=== PATIENT | female | born 1945 | race Caucasian/White ===

== ENCOUNTER 2018-12-09 09:02 | Emergency (ER) | payer MEDICARE, BC ==
[2018-12-09 09:13] VITALS: TEMP 97.6
[2018-12-09] MEDS ORDERED: SODIUM CHLORIDE 0.9% 500 ML 500 ML IV STA (09:26)
--- NOTE | 2018-12-09 09:31 | ED ---
General Adult HPI - General Chief complaint: Neuro Symptoms/Deficit Stated complaint: Numbness on R Side Time Seen by Provider: 12/09/18 09:10 Source: patient, RN notes reviewed Mode of arrival: ambulatory Limitations: no limitations - History of Present Illness Initial comments: This a 73-year-old female presents emergency department stating that she had some tingling in her right arm. Patient states this occurs when she plays video games occasionally but usually resolves. Patient states today it didn't resolve and it went up her whole arm into her shoulder and then down her side and into her leg. Patient states the tingling sensation lasted about an hour and a half and then completely resolved. Patient also states she had a mild headache in the middle of this. Patient states she's never lost feeling she just had a tingling sensation of the whole right side of her body. Patient denies any loss of strength. Patient denies any slurred speech. Patient denies any visual disturbance. Patient has no symptoms currently. Patient denies chest pain difficulty breathing or shortness of breath per patient denies any recent fever chills or cough. - Related Data Home Medications Medication Instructions Recorded Confirmed Ascorbic Acid [Vitamin C] 1,000 mg PO DAILY 12/09/18 12/09/18 Calcium Carbonate [Calcium] 600 mg PO DAILY 12/09/18 12/09/18 Levothyroxine Sodium [Synthroid] 25 mcg PO SUTUTHSA 12/09/18 12/09/18 Levothyroxine Sodium [Synthroid] 50 mcg PO MOWEFR 12/09/18 12/09/18 Multivitamins, Thera [Multivitamin 1 tab PO DAILY 12/09/18 12/09/18 (formulary)] [place]-3 Fatty Acids [[place]-3] 1,000 mg PO DAILY 12/09/18 12/09/18 Omeprazole 40 mg PO DAILY 12/09/18 12/09/18 Ubidecarenone [Co Q-10] 200 mg PO DAILY 12/09/18 12/09/18 Vitamin B Complex 1 cap PO DAILY 12/09/18 12/09/18 Allergies Allergy/AdvReac Type Severity Reaction Status Date / Time Iodinated Contrast- Oral and Allergy Unknown Verified 12/09/18 09:43 IV Dye Sulfa (Sulfonamide Allergy Unknown Verified 12/09/18 09:43 Antibiotics) Review of Systems ROS Statement: Those systems with pertinent positive or pertinent negative responses have been documented in the HPI. ROS Other: All systems not noted in ROS Statement are negative. Past Medical History Past Medical History: GERD/Reflux, Thyroid Disorder History of Any Multi-Drug Resistant Organisms: None Reported Past Surgical History: Hernia Repair, Hysterectomy Past Psychological History: No Psychological Hx Reported Smoking Status: Former smoker Past Alcohol Use History: None Reported Past Drug Use History: None Reported General Exam - General Exam Comments Initial Comments: GENERAL: Patient is well-developed and well-nourished. Patient is nontoxic and well- hydrated and is in mild distress. ENT: Neck is soft and supple. No significant lymphadenopathy is noted. Oropharynx is clear. Moist mucous membranes. Neck has full range of motion without eliciting any pain. EYES: The sclera were anicteric and conjunctiva were pink and moist. Extraocular movements were intact and pupils were equal round and reactive to light. Eyelids were unremarkable. PULMONARY: Unlabored respirations. Good breath sounds bilaterally. No audible rales rhonchi or wheezing was noted. CARDIOVASCULAR: There is a regular rate and rhythm without any murmurs gallops or rubs. ABDOMEN: Soft and nontender with normal bowel sounds. No palpable organomegaly was noted. There is no palpable pulsatile mass. SKIN: Skin is clear with no lesions or rashes and otherwise unremarkable. NEUROLOGIC: Patient is alert and oriented x3. Cranial nerves II through XII are grossly intact. Motor and sensory are also intact. Normal speech, volume and content. Symmetrical smile. MUSCULOSKELETAL: Normal extremities with adequate strength and full range of motion. LYMPHATICS: No significant lymphadenopathy is noted PSYCHIATRIC: Normal psychiatric evaluation. Limitations: no limitations Course Vital Signs 12/09/18 12/09/18 09:09 10:00 Temperature 97.6 F Pulse Rate 81 71 Respiratory 16 21 Rate Blood Pressure 180/75 143/73 O2 Sat by Pulse 98 94 L Oximetry Medical Decision Making - Medical Decision Making EKG shows normal sinus rhythm at 76 bpm NV interval 214 QRS is 66 QT interval 366 QTC is 411. EKG shows no ST segment elevation or depression. CT of the brain showed no acute abnormality. Chest x-ray showed no acute abnormality. Patient remains asymptomatic in the emergency department. I offered admission to the patient she did not want to be admitted she stated she wanted to be followed up as an outpatient. - Lab Data Result diagrams: 12/09/18 09:30 06/08/19 09:30 Lab Results 12/09/18 12/09/18 12/09/18 Range/Units 09:30 09:30 09:30 WBC 6.7 (3.8-10.6) k/uL RBC 4.74 (3.80-5.40) m/uL Hgb 14.2 (11.4-16.0) gm/dL Hct 43.2 (34.0-46.0) % MCV 91.1 (80.0-100.0) fL MCH 29.9 (25.0-35.0) pg MCHC 32.8 (31.0-37.0) g/dL RDW 13.0 (11.5-15.5) % Plt Count 342 (150-450) k/uL Neutrophils % 56 % Lymphocytes % 27 % Monocytes % 7 % Eosinophils % 6 % Basophils % 1 % Neutrophils # 3.8 (1.3-7.7) k/uL Lymphocytes # 1.8 (1.0-4.8) k/uL Monocytes # 0.5 (0-1.0) k/uL Eosinophils # 0.4 (0-0.7) k/uL Basophils # 0.0 (0-0.2) k/uL PT 10.5 (9.0-12.0) sec INR 1.0 (<1.2) APTT 23.7 (22.0-30.0) sec Sodium 140 (137-145) mmol/L Potassium 5.1 (3.5-5.1) mmol/L Chloride 102 (98-107) mmol/L Carbon Dioxide 30 (22-30) mmol/L Anion Gap 8 mmol/L BUN 29 H (7-17) mg/dL Creatinine 0.89 (0.52-1.04) mg/dL Est GFR (CKD-EPI)AfAm 74 (>60 ml/min/1.73 sqM) Est GFR (CKD-EPI)NonAf 65 (>60 ml/min/1.73 sqM) Glucose 81 (74-99) mg/dL Calcium 9.9 (8.4-10.2) mg/dL Total Bilirubin 0.5 (0.2-1.3) mg/dL AST 28 (14-36) U/L ALT 27 (9-52) U/L Alkaline Phosphatase 104 (38-126) U/L Troponin I (0.000-0.034) ng/mL Total Protein 7.6 (6.3-8.2) g/dL Albumin 4.5 (3.5-5.0) g/dL 12/09/18 Range/Units 09:30 WBC (3.8-10.6) k/uL RBC (3.80-5.40) m/uL Hgb (11.4-16.0) gm/dL Hct (34.0-46.0) % MCV (80.0-100.0) fL MCH (25.0-35.0) pg MCHC (31.0-37.0) g/dL RDW (11.5-15.5) % Plt Count (150-450) k/uL Neutrophils % % Lymphocytes % % Monocytes % % Eosinophils % % Basophils % % Neutrophils # (1.3-7.7) k/uL Lymphocytes # (1.0-4.8) k/uL Monocytes # (0-1.0) k/uL Eosinophils # (0-0.7) k/uL Basophils # (0-0.2) k/uL PT (9.0-12.0) sec INR (<1.2) APTT (22.0-30.0) sec Sodium (137-145) mmol/L Potassium (3.5-5.1) mmol/L Chloride (98-107) mmol/L Carbon Dioxide (22-30) mmol/L Anion Gap mmol/L BUN (7-17) mg/dL Creatinine (0.52-1.04) mg/dL Est GFR (CKD-EPI)AfAm (>60 ml/min/1.73 sqM) Est GFR (CKD-EPI)NonAf (>60 ml/min/1.73 sqM) Glucose (74-99) mg/dL Calcium (8.4-10.2) mg/dL Total Bilirubin (0.2-1.3) mg/dL AST (14-36) U/L ALT (9-52) U/L Alkaline Phosphatase (38-126) U/L Troponin I <0.012 (0.000-0.034) ng/mL Total Protein (6.3-8.2) g/dL Albumin (3.5-5.0) g/dL Disposition Clinical Impression: Paresthesias Disposition: HOME SELF-CARE Condition: Good Instructions (If sedation given, give patient instructions): Paresthesia (ED), Stroke (DC) Additional Instructions: Patient should take aspirin every day and follow-up with her primary or neurology. Is patient prescribed a controlled substance at d/c from ED?: No Referrals: Jaspal Rosas DO [Primary Care Provider] - 1-2 days Time of Disposition: 11:18
[2018-12-09 09:42] LABS: Basophils % (A) 1 %; Eosinophils # (A) 0.4 k/uL (0-0.7); Eosinophils % (A) 6 %; HCT 43.2 % (34.0-46.0); HGB 14.2 gm/dL (11.4-16.0); Lymphocytes # (A) 1.8 k/uL (1.0-4.8); Lymphocytes % (A) 27 %; MCH 29.9 pg (25.0-35.0); MCHC 32.8 g/dL (31.0-37.0); MCV 91.1 fL (80.0-100.0); Monocytes # (A) 0.5 k/uL (0-1.0); Monocytes % (A) 7 %; Neutrophils # (A) 3.8 k/uL (1.3-7.7); Neutrophils % (A) 56 %; Platelet Count 342 k/uL (150-450); RBC 4.74 m/uL (3.80-5.40); WBC 6.7 k/uL (3.8-10.6)
[2018-12-09 09:53] LABS: Partial Thromboplastin Time 23.7 sec (22.0-30.0); Prothrombin Time 10.5 sec (9.0-12.0)
[2018-12-09 09:55] LABS: Albumin 4.5 g/dL (3.5-5.0); Calcium 9.9 mg/dL (8.4-10.2); Potassium 5.1 mmol/L (3.5-5.1); Total Bilirubin 0.5 mg/dL (0.2-1.3); Total Protein 7.6 g/dL (6.3-8.2)
--- NOTE | 2018-12-09 09:58 | CT ---
EXAMINATION TYPE: CT brain wo con DATE OF EXAM: 12/09/2018 COMPARISON: NONE HISTORY: Neuro deficits, numbness on right side CT DLP: 1071.4 mGycm Automated exposure control for dose reduction was used. FINDINGS: Structures are midline. There is no evidence of hydrocephalus. There is diffuse periventricular white matter lucency which may relate to chronic white matter ischemic change. There is no acute focal les ion, mass effect or midline shift identified. I do not see evidence of intracranial blood. There is an air-fluid level in the right maxillary sinus. There is some mucosal thickening in the ant erior right-sided ethmoidal air cells. The mastoids are clear. The bony calvarium is intact. IMPRESSION: 1. NO ACUTE INTRACRANIAL ABNORMALITY. 2. ACUTE AND CHRONIC MAXILLARY AND RIGHT ANTERIOR ETHMOIDAL SINUS MUCOSAL DISEASE.
--- NOTE | 2018-12-09 10:00 | XR ---
EXAMINATION TYPE: XR chest 2V DATE OF EXAM: 12/09/2018 HISTORY: altered mental status. REFERENCE: NONE. FINDINGS: Lung volumes are prominent. Heart size upper limits of normal. There are increased intersti tial markings throughout the lungs. Pleural spaces appear clear. IMPRESSION: COPD AND EVIDENCE OF CHRONIC INTERSTITIAL DISEASE.
[2018-12-09 11:40] VITALS: BP 160/83; PULSE 69; RESP 16
== END 2018-12-09 11:34 | disposition home or self-care (01) ==
LOC: EC 09:02
DX: R20.2 Paresthesia of skin (principal); R51 Headache; K21.9 Gastro-esophageal reflux disease without esophagitis; E07.9 Disorder of thyroid, unspecified; Z87.891 Personal history of nicotine dependence; Z88.2 Allergy status to sulfonamides; Z91.041 Radiographic dye allergy status; Z79.890 Hormone replacement therapy; Z79.899 Other long term (current) drug therapy
CPT/HCPCS: 36415; 70450; 71046; 80053; 84484; 85025; 85610; 85730; 93005; 99284

== ENCOUNTER 2022-12-16 02:07 | Observation (INO) | payer MEDICARE, BC ==
[2022-12-16 03:53] LABS: Basophils # (A) 0.1 k/uL (0-0.2); Basophils % (A) 1 %; Eosinophils # (A) 1.1 k/uL (0-0.7); Eosinophils % (A) 10 %; HCT 39.5 % (34.0-46.0); HGB 13.1 gm/dL (11.4-16.0); Lymphocytes # (A) 1.5 k/uL (1.0-4.8); Lymphocytes % (A) 15 %; MCH 30.7 pg (25.0-35.0); MCHC 33.1 g/dL (31.0-37.0); MCV 92.7 fL (80.0-100.0); Mean Platelet Volume 8.5; Monocytes % (A) 10 %; Neutrophils # (A) 6.3 k/uL (1.3-7.7); Neutrophils % (A) 62 %; Platelet Count 389 k/uL (150-450); RBC 4.26 m/uL (3.80-5.40); RDW 12.4 % (11.5-15.5); WBC 10.2 k/uL (3.8-10.6)
[2022-12-16 03:58] LABS: ALT 20 U/L (4-34); AST 26 U/L (14-36); African American GFR (CKD) 88 (>60 ml/min/1.73 sqM); Albumin 3.7 g/dL (3.5-5.0); Alkaline Phosphatase 147 U/L (38-126); Anion Gap 6 mmol/L; Blood Urea Nitrogen 21 mg/dL (7-17); Calcium 8.8 mg/dL (8.4-10.2); Carbon Dioxide 26 mmol/L (22-30); Chloride 103 mmol/L (98-107); Glucose 114 mg/dL (74-99); Lipase 56 U/L (23-300); Magnesium 1.9 mg/dL (1.6-2.3); Non-African American GFR(CKD) 76 (>60 ml/min/1.73 sqM); Potassium 4.5 mmol/L (3.5-5.1); Sodium 135 mmol/L (137-145); Total Bilirubin 0.5 mg/dL (0.2-1.3); Total Protein 6.7 g/dL (6.3-8.2)
[2022-12-16 04:42] LABS: Prothrombin Time 10.5 sec (9.0-12.0)
--- NOTE | 2022-12-16 05:05 | ED ---
General Adult HPI - General Source: patient, EMS Mode of arrival: EMS Limitations: no limitations <Nicanor Nunes - Last Filed: 12/16/22 07:06> <Zane Olvera - Last Filed: 12/16/22 10:02> - General Chief complaint: Shortness of Breath Stated complaint: SOB, Fever Time Seen by Provider: 12/16/22 02:19 - History of Present Illness Initial comments: This is a 77-year-old female with no past medical history presents emergency department for acute shortness of breath that began at 10 PM. The patient stated that she had experienced increasing shortness of breath at 10 PM that she had not experience before. The patient is described to be extremely active and was working throughout the yard today. The patient stated that she felt that her heart was racing as well and stated that when she arrived in the emergency department after EMS took her, she did have improvement of her symptoms. The patient had denied any hypertension as well as any anxiety or panic attacks. The patient did however state she does have a history of white coat syndrome. The patient denied any other acute pain or complaints at this time. The patient denied any fevers and chills but did state that she has been feeling intermitt ently weak over the last 1 week. (Nicanor Nunes) - Related Data Home Medications Medication Instructions Recorded Confirmed Ascorbic Acid [Vitamin C] 1,000 mg PO DAILY 12/09/18 12/09/18 Calcium Carbonate [Calcium] 600 mg PO DAILY 12/09/18 12/09/18 Levothyroxine Sodium [Synthroid] 25 mcg PO SUTUTHSA 12/09/18 12/09/18 Levothyroxine Sodium [Synthroid] 50 mcg PO MOWEFR 12/09/18 12/09/18 Multivitamins, Thera [Multivitamin 1 tab PO DAILY 12/09/18 12/09/18 (formulary)] [place]-3 Fatty Acids [[place]-3] 1,000 mg PO DAILY 12/09/18 12/09/18 Omeprazole 40 mg PO DAILY 12/09/18 12/09/18 Ubidecarenone [Co Q-10] 200 mg PO DAILY 12/09/18 12/09/18 Vitamin B Complex 1 cap PO DAILY 12/09/18 12/09/18 Allergies Allergy/AdvReac Type Severity Reaction Status Date / Time Iodinated Contrast Media Allergy Unknown Verified 12/09/18 09:43 [Iodinated Contrast- Oral and IV Dye] Sulfa (Sulfonamide Allergy Unknown Verified 12/09/18 09:43 Antibiotics) Review of Systems ROS Other: All systems not noted in ROS Statement are negative. <Nicanor Nunes - Last Filed: 12/16/22 07:06> ROS Other: All systems not noted in ROS Statement are negative. <Zane Olvera - Last Filed: 12/16/22 10:02> ROS Statement: Those systems with pertinent positive or pertinent negative responses have been documented in the HPI. Past Medical History Past Medical History: GERD/Reflux, Thyroid Disorder History of Any Multi-Drug Resistant Organisms: None Reported Past Surgical History: Hernia Repair, Hysterectomy Past Psychological History: No Psychological Hx Reported Past Alcohol Use History: None Reported Past Drug Use History: None Reported <Nicanor Nunes - Last Filed: 12/16/22 07:06> General Exam Limitations: no limitations General appearance: alert, in no apparent distress Head exam: Present: atraumatic, normocephalic, normal inspection Eye exam: Present: normal appearance, PERRL Pupils: Present: normal accommodation ENT exam: Present: normal exam, normal oropharynx, mucous membranes moist Neck exam: Present: normal inspection, full ROM Respiratory exam: Present: normal lung sounds bilaterally Cardiovascular Exam: Present: regular rate, normal rhythm, normal heart sounds GI/Abdominal exam: Present: soft, normal bowel sounds Extremities exam: Present: normal inspection, full ROM Back exam: Present: normal inspection, full ROM Neurological exam: Present: alert, oriented X3, CN II-XII intact Psychiatric exam: Present: normal affect, normal mood Skin exam: Present: warm, dry <Nicanor Nunes - Last Filed: 12/16/22 07:06> Course Vital Signs 12/16/22 12/16/22 12/16/22 02:09 04:04 05:00 Temperature 98.0 F Pulse Rate 100 93 90 Respiratory 20 20 25 H Rate Blood Pressure 182/89 182/89 178/80 O2 Sat by Pulse 92 L 94 L Oximetry 12/16/22 12/16/22 06:00 07:00 Temperature Pulse Rate 91 93 Respiratory 16 Rate Blood Pressure 178/80 174/81 O2 Sat by Pulse 97 94 L Oximetry EKG Findings - EKG Comments: EKG Findings:: An EKG was obtained was interpreted by myself showing a rate of 93, NH interval 125, QRS duration of 76 and QTC of 380. This EKG showed a normal sinus rhythm with no ST segment elevation or depression noted. <Nicanor Nunes - Last Filed: 12/16/22 07:06> Medical Decision Making - Lab Data Result diagrams: 12/16/22 02:20 12/16/22 02:20 <Nicanor Nunes - Last Filed: 12/16/22 07:06> - Lab Data Result diagrams: 12/16/22 02:20 12/16/22 02:20 <Zane Olvera - Last Filed: 12/16/22 10:02> - Medical Decision Making Was pt. sent in by a medical professional or institution (BRENDA Hernandes, ELECTRICAL AND INSTRUMENTATION MECHANIC, urgent care, hospital, or correction...) When possible be specific @ -No Did you speak to anyone other than the patient for history (EMS, parent, family, police, friend...)? What history was obtained from this source @ -No Did you review nursing and triage notes (agree or disagree)? Why? @ -I reviewed and agree with nursing and triage notes Were old charts reviewed (outside hosp., previous admission, EMS record, old EKG, old radiological studies, urgent care reports/EKG's, correction records)? Report findings @ -No old charts were reviewed Differential Diagnosis (chest pain, altered mental status, abdominal pain women, abdominal pain men, vaginal bleeding, weakness, fever, dyspnea, syncope, headache, dizziness, GI bleed, back pain, seizure, CVA, palpatations, mental health)? @ -Pneumonia, pneumothorax, ACS EKG interpreted by me (3pts min.). @ -As above X-rays interpreted by me (1pt min.). @ -Chest x-ray was obtained and was interpreted by myself showing diffuse prominence of the pulmonary interstitium which could reflect atypical pneumonia. Underlying fibrosis is difficult to exclude. There was no sizable pleural effusion present. CT interpreted by me (1pt min.). @ -None done U/S interpreted by me (1pt. min.). @ -None done What testing was considered but not performed or refused? (CT, X-rays, U/S, labs)? Why? @ -None What meds were considered but not given or refused? Why? @ -None Did you discuss the management of the patient with other professionals (professionals i.e. , PA, ELECTRICAL AND INSTRUMENTATION MECHANIC, lab, RT, psych nurse, social media analyst, stull hewer, teacher, digital controls technical officer, disease case manager)? Give summary @ -No Was smoking cessation discussed for >3mins.? @ -No Was critical care preformed (if so, how long)? @ -No Were there social determinants of health that impacted care today? How? (Homelessness, low income, unemployed, alcoholism, drug addiction, transportation, low edu. Level, literacy, decrease access to med. care, assisted, rehab)? @ -No Was there de-escalation of care discussed even if they declined (Discuss DNR or withdrawal of care, Hospice)? DNR status @ -No What co-morbidities impacted this encounter? (DM, HTN, Smoking, COPD, CAD, Cancer, CVA, ARF, Chemo, Hep., AIDS, mental health diagnosis, sleep apnea, morbid obesity)? @ -None Was patient admitted / discharged? Hospital course, mention meds given and route, prescriptions, significant lab abnormalities, going to OR and other pertinent info. @ -The patient was seen and evaluated emergency department. Physical exam, the patient was resting in bed without any acute distress. Vital signs admission were stable. Due to the nature the patient's complaints, laboratory workup and chest x-ray as well as an EKG were obtained. All laboratory workup was within normal limits. Chest x-ray showed possible atypical pneumonia versus fibrosis. Due to some of these findings in the setting of sudden shortness of breath, swabs for COVID-19, influenza and RSV were obtained. The patient will be signed out pending the results of the swabs. If the swabs are negative, the patient could be discharged home to follow-up with pulmonology. The patient was signed out to Dr. Olvera pending these swabs. Undiagnosed new problem with uncertain prognosis? @ -No Drug Therapy requiring intensive monitoring for toxicity (Heparin, Nitro, Insulin, Cardizem)? @ -No Were any procedures done? @ -No Diagnosis/symptom? @ -Shortness of breath, NOS, atypical pneumonia versus fibrosis Acute, or Chronic, or Acute on Chronic? @ -Acute on chronic Uncomplicated (without systemic symptoms) or Complicated (systemic symptoms)? @ -Complicated Side effects of treatment? @ -No Exacerbation, Progression, or Severe Exacerbation? @ -No Poses a threat to life or bodily function? How? (Chest pain, [place], [place], pneumonia, PE, COPD, DKA, ARF, appy, cholecystitis, CVA, Diverticulitis, Homicidal, Suicidal, threat to staff... and all critical care pts) @ -No (Nicanor Nunes) Patient is a 77-year-old female prior tobacco user who presents emergency Department complaining of worsening shortness of breath overnight. Has noticed some worsening exertional dyspnea for the last few weeks to months. But sudden onset worsening overnight. Patient is normally very active, the dyspnea was sudden in onset. Presented last night for evaluation. He was evaluated initially by prior physician, Dr. Nunes, and viral swabs are pending as well as reevaluation. I agree with his previous assessment and workup. This included cardiac labs and pulmonary labs with a normal d-dimer, nondetectable troponin, as well as a normal BMP for her age. Vital signs are negative. Remainder of the labs are unremarkable. Patient's EKG showed no evidence of acute ischemia. Chest x-ray as interpreted by myself revealed what appears to be only fibrosis which does appear worsens. Radiology does interpreted as possibly showing atypical pneumonia but when compared to prior chest x-rays, she does have a history of these findings, however they seem to have progressed. I discussed with the patient her workup. On ambulatory pulse ox, she does drop into the 80%'s for pulse ox. At rest she is typically 92-95%. I discussed with her that I do believe this is likely related to pulmonary fibrosis but cannot rule out other etiology such as pulmonary hypertension. I have lower suspicion for infection at this time. I would like to admit her to the hospital and she was in agreement this plan. Pulmonology will evaluate her. I spoke with the admitting physician, Dr. Bass who accepted the admission. Echo was ordered by myself. Dr. Bass requested a CT high-resolution scan without contrast of the chest. This was completed and revealed pulmonary fibrosis. Patient admitted in stable condition. Diagnosis/symptom? @ -Dyspnea, likely secondary to pulmonary fibrosis Acute, or Chronic, or Acute on Chronic? @ -Acute on chronic Uncomplicated (without systemic symptoms) or Complicated (systemic symptoms)? @ -Complicated Side effects of treatment? @ -none Exacerbation, Progression, or Severe Exacerbation] @ -no Poses a threat to life or bodily function? @ -Yes (Zane Olvera) - Lab Data Lab Results 12/16/22 12/16/22 12/16/22 Range/Units 02:20 02:20 02:20 WBC 10.2 (3.8-10.6) k/uL RBC 4.26 (3.80-5.40) m/uL Hgb 13.1 (11.4-16.0) gm/dL Hct 39.5 (34.0-46.0) % MCV 92.7 (80.0-100.0) fL MCH 30.7 (25.0-35.0) pg MCHC 33.1 (31.0-37.0) g/dL RDW 12.4 (11.5-15.5) % Plt Count 389 (150-450) k/uL MPV 8.5 Neutrophils % 62 % Lymphocytes % 15 % Monocytes % 10 % Eosinophils % 10 % Basophils % 1 % Neutrophils # 6.3 (1.3-7.7) k/uL Lymphocytes # 1.5 (1.0-4.8) k/uL Monocytes # 1.0 (0-1.0) k/uL Eosinophils # 1.1 H (0-0.7) k/uL Basophils # 0.1 (0-0.2) k/uL PT 10.5 (9.0-12.0) sec INR 1.0 (<1.2) APTT 25.0 (22.0-30.0) sec D-Dimer 0.46 (<0.60) mg/L FEU Sodium 135 L (137-145) mmol/L Potassium 4.5 (3.5-5.1) mmol/L Chloride 103 (98-107) mmol/L Carbon Dioxide 26 (22-30) mmol/L Anion Gap 6 mmol/L BUN 21 H (7-17) mg/dL Creatinine 0.76 (0.52-1.04) mg/dL Est GFR (CKD-EPI)AfAm 88 (>60 ml/min/1.73 sqM) Est GFR (CKD-EPI)NonAf 76 (>60 ml/min/1.73 sqM) Glucose 114 H (74-99) mg/dL Calcium 8.8 (8.4-10.2) mg/dL Magnesium 1.9 (1.6-2.3) mg/dL Total Bilirubin 0.5 (0.2-1.3) mg/dL AST 26 (14-36) U/L ALT 20 (4-34) U/L Alkaline Phosphatase 147 H (38-126) U/L Troponin I (0.000-0.034) ng/mL NT-Pro-B Natriuret Pep pg/mL Total Protein 6.7 (6.3-8.2) g/dL Albumin 3.7 (3.5-5.0) g/dL Lipase 56 (23-300) U/L Influenza Type A (PCR) (Not Detectd) Influenza Type B (PCR) (Not Detectd) RSV (PCR) (Not Detectd) SARS-CoV-2 (PCR) (Not Detectd) 12/16/22 12/16/22 12/16/22 Range/Units 02:20 02:20 06:59 WBC (3.8-10.6) k/uL RBC (3.80-5.40) m/uL Hgb (11.4-16.0) gm/dL Hct (34.0-46.0) % MCV (80.0-100.0) fL MCH (25.0-35.0) pg MCHC (31.0-37.0) g/dL RDW (11.5-15.5) % Plt Count (150-450) k/uL MPV Neutrophils % % Lymphocytes % % Monocytes % % Eosinophils % % Basophils % % Neutrophils # (1.3-7.7) k/uL Lymphocytes # (1.0-4.8) k/uL Monocytes # (0-1.0) k/uL Eosinophils # (0-0.7) k/uL Basophils # (0-0.2) k/uL PT (9.0-12.0) sec INR (<1.2) APTT (22.0-30.0) sec D-Dimer (<0.60) mg/L FEU Sodium (137-145) mmol/L Potassium (3.5-5.1) mmol/L Chloride (98-107) mmol/L Carbon Dioxide (22-30) mmol/L Anion Gap mmol/L BUN (7-17) mg/dL Creatinine (0.52-1.04) mg/dL Est GFR (CKD-EPI)AfAm (>60 ml/min/1.73 sqM) Est GFR (CKD-EPI)NonAf (>60 ml/min/1.73 sqM) Glucose (74-99) mg/dL Calcium (8.4-10.2) mg/dL Magnesium (1.6-2.3) mg/dL Total Bilirubin (0.2-1.3) mg/dL AST (14-36) U/L ALT (4-34) U/L Alkaline Phosphatase (38-126) U/L Troponin I <0.012 (0.000-0.034) ng/mL NT-Pro-B Natriuret Pep 179 pg/mL Total Protein (6.3-8.2) g/dL Albumin (3.5-5.0) g/dL Lipase (23-300) U/L Influenza Type A (PCR) Not Detected (Not Detectd) Influenza Type B (PCR) Not Detected (Not Detectd) RSV (PCR) Not Detected (Not Detectd) SARS-CoV-2 (PCR) Not Detected (Not Detectd) Disposition <Nicanor Nunes - Last Filed: 12/16/22 07:06> Time of Disposition: 08:48 <Zane Olvera - Last Filed: 12/16/22 10:02> Clinical Impression: Pulmonary fibrosis, Dyspnea, Exercise hypoxemia Disposition: ADMITTED IP TO THIS HOSP Condition: Stable
--- NOTE | 2022-12-16 06:23 | XR ---
EXAMINATION TYPE: XR chest 2V DATE OF EXAM: 12/16/2022 COMPARISON: 12/09/2018 HISTORY: Shortness of breath TECHNIQUE: Frontal and lateral views of the chest are obtained. FINDINGS: Scattered senescent parenchymal changes noted. Hyperinflation compatible with COPD. Diffuse prominence of the pulmonary interstitium which could reflect atypical pneumonia. Underlying fibrosis is difficult to exclude. No sizable pleural effusions are present. The heart is m ildly enlarged however unchanged from prior study. Mediastinal structures are stable and grossly unremarkable. No evidence for hilar prominence. Degenerative changes dorsal spine. IMPRESSION: 1. Diffuse prominence of the pulmonary interstitium which could reflect atypical pneumonia. Underlying fibrosis is difficult to exclude. No sizable pleural effusions are present.
[2022-12-16] MEDS ORDERED: ACETAMINOPHEN TAB 325 MG TAB PO PRN (09:03)
[2022-12-16] MEDS ORDERED: NALOXONE 0.4 MG/ML 1 ML VIAL IV PRN (09:03)
--- NOTE | 2022-12-16 09:51 | CT ---
EXAMINATION TYPE: CT chest wo con CT DLP: 692.9 mGycm, Automated exposure control for dose reduction was used. DATE OF EXAM: 12/16/2022 9:36 AM COMPARISON: . Chest radiograph from same day. CLINICAL INDICATION:Female, 77 years old with history of high resolution for pulmonary fibrosis; PHH, High res for pulmonary fibrosis. Pt c/o NOEMÍ. TECHNIQUE: High resolution axial images of the chest were obtained in a supine and prone position. No intravenous contrast was administered. FINDINGS: The lack of intravenous contrast limits evaluation of the mediastinum and adriano. CHEST: LUNGS: Moderate centrilobular emphysematous changes with upper lobe predominance. There is diffuse hook bpleural interstitial reticular opacities. No definitive honeycombing identified. No subpleural spari ng identified. Bibasilar cylindrical bronchiectasis. Scattered pulmonary nodule suggested evaluation is limited due to high resolution format. No acute area of infiltrative or consolidative change. LARGE AIRWAYS: Central airways are patent. No dynamic airway collapse on expiratory imaging. PLEURA: No pleural effusion or thickening. HEART AND PERICARDIUM: Heart is normal in size. There is no pericardial effusion. Mild coronary arter y calcifications present. MEDIASTINUM AND ADRIANO: No mediastinal or hilar lymphadenopathy or soft tissue mass. VESSELS: The thoracic aorta is normal in course and caliber. Atherosclerotic calcification of the ao rta and its branches. CHEST WALL AND DIAPHRAGM: Normal. LOWER NECK: Normal. UPPER ABDOMEN: Small hiatal hernia. MUSCULOSKELETAL: No acute fracture. IMPRESSION: Moderate emphysematous changes with nonspecific pulmonary fibrosis pattern.
[2022-12-16] MEDS ORDERED: LEVOTHYROXINE 25 MCG TAB PO SCH (10:30)
[2022-12-16] MEDS ORDERED: NON FORMULARY DRUG (Vitamin B Complex [Vitamin B Complex] 1 EACH Capsule) PO SCH (10:30)
[2022-12-16] MEDS: MULTIVITAMINS, THERA 1 EACH TAB PO SCH (10:36)
[2022-12-16] MEDS: CALCIUM CARBONATE 500 MG CHEWABLE PO SCH (10:37)
[2022-12-16] MEDS: PANTOPRAZOLE 40 MG TABLET PO SCH (10:37)
[2022-12-16] MEDS: ASCORBIC ACID 500 MG TAB PO SCH (10:37)
--- NOTE | 2022-12-16 11:12 | CA ---
Transthoracic Echo Report Name: Roshni Thorpe Age: 77 Gender: F : 1945 Exam Date: 12/16/2022 09:38 Exam Location: [place] [facility] Ht (in): 62 Wt (lb): 150 Ordering Physician: Zane Ovlera MD Attending/Referring Phys: Sample Checker Jeniffer Kumar [facility] Procedure CPT: Indications: exertional dyspnea Cardiac Hx: Technical Quality: Fair Contrast 1: Total Dose (mL): Contrast 2: Total Dose (mL): MEASUREMENTS (Male / Female) Normal Values 2D ECHO LV Diastolic Diameter PLAX 4.1 cm 4.2 - 5.9 / 3.9 - 5.3 cm LV Systolic Diameter PLAX 2.9 cm IVS Diastolic Thickness 0.9 cm 0.6 - 1.0 / 0.6 - 0.9 cm LVPW Diastolic Thickness 0.9 cm 0.6 - 1.0 / 0.6 - 0.9 cm LV Relative Wall Thickness 0.4 RV Internal Dim ED PLAX 3.5 cm M-MODE Aortic Root Diameter MM 3.0 cm LA Systolic Diameter MM 4.2 cm LA Ao Ratio MM 1.4 AV Cusp Separation MM 2.0 cm DOPPLER AV Peak Velocity 140.4 cm/s AV Peak Gradient 7.9 mmHg AV Mean Velocity 103.2 cm/s AV Mean Gradient 4.5 mmHg AV Velocity Time Integral 28.3 cm LVOT Peak Velocity 131.4 cm/s LVOT Peak Gradient 6.9 mmHg LVOT Velocity Time Integral 27.4 cm Mitral E Point Velocity 62.4 cm/s Mitral A Point Velocity 99.5 cm/s Mitral E to A Ratio 0.6 MV Deceleration Time 172.8 ms LV E' Lateral Velocity 10.1 cm/s Mitral E to LV E' Lateral Ratio 6.2 LV E' Septal Velocity 6.7 cm/s Mitral E to LV E' Septal Ratio 9.3 TR Peak Velocity 342.1 cm/s TR Peak Gradient 56.9 mmHg Right Atrial Pressure 3.0 mmHg Pulmonary Artery Systolic Pressu 49.8 mmHg Right Ventricular Systolic Press 61.9 mmHg FINDINGS Left Ventricle Normal left ventricular size, wall thickness, systolic function with no obvious regional wall motion abnormalities. The ejection fraction is visually estimated at 55-60%. Right Ventricle The right ventricle is normal in size and function. Right Atrium The right atrium is normal in size. Left Atrium The left atrium is normal in size. Mitral Valve Structurally normal mitral valve without significant stenosis or prolapse. Mild mitral regurgitation.mild mitral annular calcification. Aortic Valve Structurally normal aortic valve without significant sclerosis or stenosis. There is no aortic regurgitation. Tricuspid Valve Structurally normal tricuspid valve without significant stenosis. Mild to moderate tricuspid regurgitation. Moderate to Severe pulmonary hypertension Pulmonic Valve Structurally normal pulmonic valve without significant stenosis. There is no pulmonic regurgitation. Pericardium Normal pericardium without effusion. Aorta Normal aortic root dimension. CONCLUSIONS 1. Normal left ventricle size and systolic function 2. Mild mitral regurgitation and mild to moderate tricuspid regurgitation with moderate to severe pulmonary hypertension Previewed by: Dr. Romulo Valente MD (Electronically Signed) Final Date: 16 December 2022 11:11
[2022-12-16] MEDS ORDERED: MELATONIN 3 MG TABLET PO PRN (12:26)
[2022-12-16] MEDS ORDERED: ONDANSETRON 4 MG/2 ML VIAL IVP PRN (12:26)
[2022-12-16] MEDS ORDERED: LORazepam 0.5 MG TAB PO PRN (12:26)
--- NOTE | 2022-12-16 12:55 | P.CNPUL ---
History of Present Illness Consult date: 12/16/22 Requesting physician: Jackson Bass Reason for consult: dyspnea, cough, hypoxemia, pulmonary fibrosis, abnormal CXR/CT Chief complaint: Shortness of breath on exertion. History of present illness: Pulmonary consult dated 12/16/2022. 77-year-old female with a history of hypothyroidism, and gastroesophageal reflux disease, who presents to the emergency department, complaining of acute shortnes s of breath. She was seen on December 16. She states that the shortness of breath began the night before at 10 PM. The patient also was having a rapid heartbeat, with palpitations. She was seen in my office by my partner a couple years ago, and apparently was told that there is nothing wrong with her lungs. I believe she was seen there because of pulmonary nodules. She apparently did not want an y additional scanning according to my partner's notes. When asked in detail about her shortness of breath, it's been going on for at least a year and probably longer. It doesn't appear to be occurring at rest, but only on exertion, such as carrying things, going up steps. In addition, she does admit to cough and some chest congestion. She did smoke many years ago, for about 30 years, one half pack a day. She denies a prior history of any lung disease. White count is 10.2, with a normal hemoglobin, hematocrit, and platelet count. Coagulation studies are normal. D-dimer was normal. Sodium 135, potassium 4.5, chlorides 103, CO2 26, BUN 21 and creatinine 0.76. Troponins were negative. N- terminal proBNP was normal. Testing for influenza A, and influenza B, as well as testing for RSV and coronavirus, all negative. Chest x-ray is reviewed and shows a pattern that was consistent with interstitial prominence. Computed tomography scan shows some emphysematous changes, and nonspecific pulmonary fibrosis. Review of Systems REVIEW OF SYSTEMS: CONSTITUTIONAL: [Negative.] NEUROLOGIC: [ Negative.] HEENT: [ Negative.] CARDIAC: Rapid heartbeat, palpitations. PULMONARY: Shortness of breath on exertion, which has been present for greater than one year. GI: [Negative.] : [Negative.] RHEUMATOLOGIC: [ Negative.] IMMUNOLOGIC: [ Negative.] ENDOCRINE: [Negative. ] DERMATOLOGIC: [Negative.] Past Medical History Past Medical History: GERD/Reflux, Thyroid Disorder History of Any Multi-Drug Resistant Organisms: None Reported Past Surgical History: Hernia Repair, Hysterectomy Past Psychological History: No Psychological Hx Reported Past Alcohol Use History: None Reported Past Drug Use History: None Reported Medications and Allergies Home Medications Medication Instructions Recorded Confirmed Type Levothyroxine Sodium [Synthroid] 50 mcg PO DAILY 12/09/18 12/16/22 History Omeprazole 40 mg PO DAILY 12/09/18 12/16/22 History Allergies Allergy/AdvReac Type Severity Reaction Status Date / Time Iodinated Contrast Media Allergy Swelling Verified 12/16/22 10:25 [Iodinated Contrast- Oral and IV Dye] Sulfa (Sulfonamide Allergy Swelling Verified 12/16/22 10:25 Antibiotics) Physical Exam Osteopathic Statement: *. No significant issues noted on an osteopathic structural exam other than those noted in the History and Physical/Consult. Vitals: Vital Signs Temp Pulse Resp BP Pulse Ox 12/16/22 11:44 96 12/16/22 11:43 98 18 77 L 12/16/22 11:14 86 16 177/72 97 12/16/22 11:13 98.0 F 12/16/22 07:00 93 16 174/81 94 L 12/16/22 06:00 91 178/80 97 12/16/22 05:00 90 25 H 178/80 94 L 12/16/22 04:04 93 20 182/89 12/16/22 02:09 98.0 F 100 20 182/89 92 L Intake and Output 12/15/22 12/16/22 12/16/22 22:59 06:59 14:59 Other: Weight 68.039 kg No acute distress, oriented 3. No conversational dyspnea or use of accessory muscles. The patient's currently on 3 L. HEENT examination is grossly unremarkable. Neck supple. Full range of motion. No adenopathy thyromegaly or neck vein distention. Cardiovascular examination reveals regular rhythm rate. S1-S2 normal. No S3 or S4. No discernible murmur noted. Heart rate 98 bpm. Lungs reveal scattered bibasilar crackles. Her crackles are dry and Velcro- like. No rhonchi. No wheezes. Room air saturation only 77%. 3 L saturation is 96%. Abdomen soft bowel sounds are heard. No masses or tenderness. Extremities are intact. No cyanosis clubbing or edema. Skin is without rash or lesion. Neurologic examination is brief but nonfocal. Results - Laboratory Findings CBC and BMP: 12/16/22 02:20 12/16/22 02:20 PT/INR, D-dimer PT 10.5 sec (9.0-12.0) 12/16/22 02:20 INR 1.0 (<1.2) 12/16/22 02:20 D-Dimer 0.46 mg/L FEU (<0.60) 12/16/22 02:20 Abnormal lab findings: Abnormal Labs 12/16/22 12/16/22 02:20 02:20 Eosinophils # 1.1 H Sodium 135 L BUN 21 H Glucose 114 H Alkaline Phosphatase 147 H - Diagnostic Findings Chest x-ray: image reviewed CT scan - chest: image reviewed Assessment and Plan Assessment: Shortness of breath, both acute and chronic, with the chronic component, likely relating to interstitial lung disease/pulmonary fibrosis, and possible emphysema Tachycardia, currently being evaluated by cardiology, but may relate to her underlying pulmonary disease. History of gastroesophageal reflux disease. History of hypothyroidism. Previous history of tobacco use for about 30 years, at one half pack a day. Plan: Plan dated 12/16/2022. The patient was seen and evaluated, and examined, in the emergency department, room 8. She was quite hypoxemic on room air, with saturations in the mid 70s. Her saturation on 3 L is 96%. The patient's chest x-ray and CAT scan are reviewed. Labs and medications are reviewed. The patient may have a component of both COPD from previous tobacco use, but I believe the more serious component likely relates to pulmonary fibrosis/interstitial lung disease. CAT scan was consistent with interstitial disease, and certainly her examination is as well. The patient is currently being evaluated by cardiology. Follow-up in our office, either with me or my partner. Time with Patient: Greater than 30
[2022-12-16] MEDS: methylPREDNISolone SOD SUCCI 40 MG/ML 1 ML VIAL IV SCH ×2 (13:14→15:17)
[2022-12-16] MEDS: ENOXAPARIN 40 MG/0.4 ML SYRINGE SQ SCH (13:15)
--- NOTE | 2022-12-16 15:14 | P.HPIM ---
History of Present Illness H&P Date: 12/16/22 Chief Complaint: Short of breath This is a pleasant 77-year-old patient, follows Dr. Jaspal Cameron. Chronic stable medical conditions include GERD, hypothyroid. Patient of late has been noticing that she gets short of breath. The patient extremely active. Patient became more short of breath. Patient does have a chronic cough with clear sputum. Patient did smoke in the past. Because breathing became much worse she came in. Pulse ox atorvastatin 7% of the ER. No fever no chills. No chest pain. She's previously had workup done by Dr. Castorena the garbage collector in the office. Results unknown Review of systems: GEN.: Tired EYES: None HEENT: None NECK: None RESPIRATORY: As above CARDIOVASCULAR: None GASTROINTESTINAL: None GENITOURINARY: None MUSCULOSKELETAL: None LYMPHATICS: None HEMATOLOGICAL: None PSYCHIATRY: None NEUROLOGICAL: None Past medical history to include: GERD, hypothyroid Social history: Lives alone. Smoked for about 30 years half a pack a day stopped over 26 year ago.. Used to work in a factory. Physical examination: VITAL SIGNS: 98, 100, 20, 170/80, pulse ox, 77% GENERAL: BMI 27.4, declining but awake slightly short of breath. EYES: Pupils equal. Conjunctiva normal. HEENT: External appearance of nose and ears normal, oral cavity grossly normal. NECK: JVD not raised; masses not palpable. HEART: First and second heart sounds are normal; no edema. LUNGS: Respiratory rate increased; basal fine crackles. ABDOMEN: Soft, nontender, liver spleen not palpable, no masses palpable. PSYCH: Alert and oriented x3; mood and affect normal. MUSCULOSKELETAL:No Clubbing/cyanosis;muscles-grossly intact NEUROLOGICAL: Cranial nerves grossly intact; no facial asymmetry, power and sensation grossly intact. LYMPHATICS: No lymph nodes palpable in the axilla and neck INVESTIGATIONS, reviewed in the clinical context: White count 10.2 hemoglobin 13.1 platelets 389 sodium 135 potassium 4.5 BUN 21 creatine 0.76 Troponin I less than 0.012 ProBNP 179 Influenza type A, B, RSV, COVID-19: Not detected Chest x-ray film personally reviewed by me-prominent interstitium in the bases bilaterally EKG tracing personally reviewed by me-normal sinus rhythm. Some ST segment depression in the inferolateral leads Assessment and plan: -Acute on chronic medical station of bilateral pulmonary fibrosis. Cause unknown. Causing hypoxia. IV Solu-Medrol. Consult pulmonary -Moderate to severe secondary partly hypertension secondary to chronic pelvic fibrosis -Acute on chronic hypoxic respiratory failure. Suspect underlying chronic hy poxic respiratory failure especially with exertion. Supplement oxygen for now -Acute COPD exacerbation with predominant chronic bronchitis history of clears mucus. DuoNeb. Nebulized Pulmicort. -GERD PPI -Hypothyroid Levothyroxin 50 g Care was discussed with the patient and family at the bedside. Questions answered. Past Medical History Past Medical History: GERD/Reflux, Thyroid Disorder History of Any Multi-Drug Resistant Organisms: None Reported Past Surgical History: Hernia Repair, Hysterectomy Past Psychological History: No Psychological Hx Reported Past Alcohol Use History: None Reported Past Drug Use History: None Reported Medications and Allergies Home Medications Medication Instructions Recorded Confirmed Type Levothyroxine Sodium [Synthroid] 50 mcg PO DAILY 12/09/18 12/16/22 History Omeprazole 40 mg PO DAILY 12/09/18 12/16/22 History Allergies Allergy/AdvReac Type Severity Reaction Status Date / Time Iodinated Contrast Media Allergy Swelling Verified 12/16/22 10:25 [Iodinated Contrast- Oral and IV Dye] Sulfa (Sulfonamide Allergy Swelling Verified 12/16/22 10:25 Antibiotics) Physical Exam Vitals: Vital Signs Temp Pulse Resp BP Pulse Ox 12/16/22 07:00 93 16 174/81 94 L 12/16/22 06:00 91 178/80 97 12/16/22 05:00 90 25 H 178/80 94 L 12/16/22 04:04 93 20 182/89 12/16/22 02:09 98.0 F 100 20 182/89 92 L Intake and Output 12/15/22 12/16/22 12/16/22 22:59 06:59 14:59 Other: Weight 68.039 kg Results CBC & Chem 7: 12/16/22 02:20 12/16/22 02:20 Labs: Abnormal Lab Results - Last 24 Hours (Table) 12/16/22 12/16/22 Range/Units 02:20 02:20 Eosinophils # 1.1 H (0-0.7) k/uL Sodium 135 L (137-145) mmol/L BUN 21 H (7-17) mg/dL Glucose 114 H (74-99) mg/dL Alkaline Phosphatase 147 H (38-126) U/L
[2022-12-16] MEDS: BUDESONIDE 1 MG/2 ML NEBU INHALATION SCH ×2 (15:57→19:25)
[2022-12-16] MEDS: IPRATROPIUM-ALBUTEROL 3 ML NEB INHALATION SCH ×3 (15:57→19:25)
[2022-12-16 19:38] LABS: Appearance,Urine Clear (Clear); Bilirubin,Urine Negative (Negative); Blood,Urine Negative (Negative); Color,Urine Yellow; Glucose,Urine (UA) Trace (Negative); Ketones,Urine 1+ (Negative); Leukocyte Esterase,Urine Trace (Negative); Mucus,Urine Rare /hpf; Nitrite,Urine Negative (Negative); Protein,Urine Negative (Negative); RBC,Urine <1 /hpf (0-5); Specific Gravity,Urine 1.011 (1.001-1.035); Squamous Epithelial Cell,Urine <1 /hpf (0-4); Urobilinogen,Urine <2.0 mg/dL (<2.0); WBC,Urine 9 /hpf (0-5)
[2022-12-17] MEDS: methylPREDNISolone SOD SUCCI 40 MG/ML 1 ML VIAL IV SCH ×2 (00:18→08:13)
[2022-12-17 05:37] LABS: Basophils % (A) 0 %; Eosinophils % (A) 0 %; HCT 42.6 % (34.0-46.0); HGB 14.1 gm/dL (11.4-16.0); Lymphocytes # (A) 1.2 k/uL (1.0-4.8); Lymphocytes % (A) 15 %; MCH 30.7 pg (25.0-35.0); Mean Platelet Volume 7.9; Monocytes # (A) 0.3 k/uL (0-1.0); Monocytes % (A) 3 %; Neutrophils # (A) 6.5 k/uL (1.3-7.7); Neutrophils % (A) 80 %; Platelet Count 463 k/uL (150-450); RBC 4.58 m/uL (3.80-5.40); RDW 12.4 % (11.5-15.5)
[2022-12-17] MEDS: PANTOPRAZOLE 40 MG TABLET PO SCH (05:54)
[2022-12-17 05:57] LABS: African American GFR (CKD) >90 (>60 ml/min/1.73 sqM); Anion Gap 7 mmol/L; Blood Urea Nitrogen 18 mg/dL (7-17); Calcium 9.5 mg/dL (8.4-10.2); Carbon Dioxide 26 mmol/L (22-30); Chloride 103 mmol/L (98-107); Glucose 137 mg/dL (74-99); Non-African American GFR(CKD) 79 (>60 ml/min/1.73 sqM); Potassium 5.8 mmol/L (3.5-5.1); Sodium 136 mmol/L (137-145)
[2022-12-17] MEDS ORDERED: LEVOTHYROXINE 50 MCG TAB PO SCH (06:30)
[2022-12-17 08:11] VITALS: RESP 18; TEMP 98
[2022-12-17] MEDS: ENOXAPARIN 40 MG/0.4 ML SYRINGE SQ SCH (08:13)
[2022-12-17] MEDS: CALCIUM CARBONATE 500 MG CHEWABLE PO SCH (08:13)
[2022-12-17] MEDS: MULTIVITAMINS, THERA 1 EACH TAB PO SCH (08:13)
[2022-12-17] MEDS: ASCORBIC ACID 500 MG TAB PO SCH (08:14)
[2022-12-17] MEDS: BUDESONIDE 1 MG/2 ML NEBU INHALATION SCH (08:20)
[2022-12-17] MEDS: IPRATROPIUM-ALBUTEROL 3 ML NEB INHALATION SCH ×2 (08:20→11:22)
--- NOTE | 2022-12-17 10:37 | P.PN ---
Subjective Progress Note Date: 12/17/22 77-year-old female with a history of hypothyroidism, and gastroesophageal reflux disease, who presents to the emergency department, complaining of acute shortness of breath. She was seen on December 16. She states that the shortness of breath began the night before at 10 PM. The patient also was having a rapid heartbeat, with palpitations. She was seen in my office by my partner a couple years ago, and apparently was told that there is nothing wrong with her lungs. I believe she was seen there because of pulmonary nodules. She apparently did not want any additional scanning according to my partner's notes. When asked in detail about her shortness of breath, it's been going on for at least a year and probably longer. It doesn't appear to be occurring at rest, but only on exertion, such as carrying things, going up steps. In addition, she does admit to cough and some chest congestion. She did smoke many years ago, for about 30 years, one half pack a day. She denies a prior history of any lung disease. White count is 10.2, with a normal hemoglobin, hematocrit, and platelet count. Coagulation studies are normal. D-dimer was normal. Sodium 135, potassium 4.5, chlorides 103, CO2 26, BUN 21 and creatinine 0.76. Troponins were negative. N- terminal proBNP was normal. Testing for influenza A, and influenza B, as well as testing for RSV and coronavirus, all negative. Chest x-ray is reviewed and shows a pattern that was consistent with interstitial prominence. Computed tomography scan shows some emphysematous changes, and nonspecific pulmonary fibrosis. The patient is seen today 12/17/2022 in follow-up on the regular medical floor. She is currently sitting up in bed. Awake and alert in no acute distress. No worsening shortness of breath, cough or congestion. Currently maintaining good O2 saturations in the 90s on 2 L nasal cannula. Normal saline at KVO. She is continued on DuoNeb inhalations, Pulmicort inhalations, IV Solu-Medrol. Lovenox for DVT prophylaxis. White count 8.0. Hemoglobin 14.1. Platelets 463. Sodium 136. Potassium 5.8. Bicarb 26. BUN 18. Creatinine 0.74. Glucose 137. Objective - Vital Signs Vital signs: Vital Signs Temp 98 F 12/17/22 07:00 Pulse 74 06/16/23 08:42 Resp 18 12/17/22 07:00 BP 167/72 12/17/22 07:00 Pulse Ox 96 12/17/22 08:20 FiO2 Intake & Output 12/16/22 12/17/22 12/17/22 18:59 06:59 18:59 Intake Total 120 Output Total 1 Balance 119 Weight 68.039 kg Intake: Oral 120 Output: Urine 1 Other: Voiding Method Toilet # Voids 2 - Exam GENERAL EXAM: Alert, very pleasant 77-year-old female, on 2 L nasal cannula, comfortable in no apparent distress. HEAD: Normocephalic. EYES: Normal reaction of pupils, equal size. NOSE: Clear with pink turbinates. THROAT: No erythema or exudates. NECK: No masses, no JVD. CHEST: No chest wall deformity. LUNGS: Equal air entry with coarse crackles in the posterior bases. CVS: S1 and S2 normal with no audible murmur, regular rhythm. ABDOMEN: No hepatosplenomegaly, normal bowel sounds, no guarding or rigidity. SPINE: No scoliosis or deformity SKIN: No rashes CENTRAL NERVOUS SYSTEM: No focal deficits, tone is normal in all 4 extremities. EXTREMITIES: There is no peripheral edema. No clubbing, no cyanosis. Peripheral pulses are intact. - Labs CBC & Chem 7: 12/17/22 05:08 12/17/22 05:08 Labs: Abnormal Lab Results - Last 24 Hours (Table) 12/16/22 12/17/22 12/17/22 Range/Units 18:56 05:08 05:08 Plt Count 463 H (150-450) k/uL Sodium 136 L (137-145) mmol/L Potassium 5.8 H (3.5-5.1) mmol/L BUN 18 H (7-17) mg/dL Glucose 137 H (74-99) mg/dL Urine Glucose (UA) Trace H (Negative) Urine Ketones 1+ H (Negative) Ur Leukocyte Esterase Trace H (Negative) Urine WBC 9 H (0-5) /hpf Urine Mucus Rare H (None) /hpf Assessment and Plan Assessment: Shortness of breath, both acute and chronic, with the chronic component, likely relating to interstitial lung disease/pulmonary fibrosis, and possible emphysema Tachycardia, currently being evaluated by cardiology, but may relate to her underlying pulmonary disease. History of gastroesophageal reflux disease. History of hypothyroidism. Previous history of tobacco use for about 30 years, at one half pack a day. Plan: The patient was seen and evaluated Labs and medications reviewed Cleared for discharge from the pulmonary standpoint Evaluate for possible home oxygen Complete a prednisone taper starting at 40 mg daily for 4 days Will need outpatient workup including full PFTs Follow up in our office in 1 week I have personally seen and examined the patient, performed the documentation and the assessment and plan as written. Number of minutes spent on the visit: 10.
[2022-12-17 10:46] VITALS: BP 138/64
[2022-12-17 11:25] VITALS: PULSE 80
--- NOTE | 2022-12-17 16:20 | P.DS ---
Providers Date of admission: 12/16/22 09:05 Expected date of discharge: 12/17/22 Attending physician: Jackson Bass Consults: 12/16/22 09:02 Consult Physician Routine Consulting Provider: Stewart Napier Consult Reason/Comments: exertional dyspnea of unknown etiology Do you want consulting provider notified?: Yes Primary care physician: [facility] Course: Chief Complaint: Short of breath This is a pleasant 77-year-old patient, follows Dr. Jaspal Cameron. Chronic stable medical conditions include GERD, hypothyroid. Patient of late has been noticing that she gets short of breath. The patient extremely active. Patient became more short of breath. Patient does have a chronic cough with clear sputum. Patient did smoke in the past. Because breathing became much worse she came in. Pulse ox atorvastatin 7% of the ER. No fever no chills. No chest pain. She's previously had workup done by Dr. Castorena the tufting machine operator single needle in the office . Results unknown December 17: Patient is put on IV Solu-Medrol yesterday. Feeling a bit better. Patient be discharged on 40 mg of prednisone. Also begin discharge in 2 L of oxygen. Care was discussed with the patient. She'll follow with Dr. Napier in the office. Also bronchodilators. Questions answered. Patient potassium came back at 5.8. Kayexalate 30 g was ordered. I called the patient at home. She'll: On Tuesday to get her potassium rechecked. Discussion and discharge planning more than 35 minutes Past medical history to include: GERD, hypothyroid Social history: Lives alone. Smoked for about 30 years half a pack a day stopped over 26 year ago.. Used to work in a factory. Physical examination: VITAL SIGNS: 98, 95, 18, 138/64, 85% pulse ox with activity GENERAL: BMI 27.4, reclining in bed EYES: Pupils equal. Conjunctiva normal. HEENT: External appearance of nose and ears normal, oral cavity grossly normal. NECK: JVD not raised; masses not palpable. HEART: First and second heart sounds are normal; no edema. LUNGS: Respiratory rate increased; basal fine crackles. ABDOMEN: Soft, nontender, liver spleen not palpable, no masses palpable. PSYCH: Alert and oriented x3; mood and affect normal. MUSCULOSKELETAL:No Clubbing/cyanosis;muscles-grossly intact INVESTIGATIONS, reviewed in the clinical context: December 17: White count 8 hemoglobin 14.1 platelets 463 White count 10.2 hemoglobin 13.1 platelets 389 sodium 135 potassium 4.5 BUN 21 creatine 0.76 Troponin I less than 0.012 ProBNP 179 Influenza type A, B, RSV, COVID-19: Not detected Chest x-ray film personally reviewed by me-prominent interstitium in the bases bilaterally EKG tracing personally reviewed by me-normal sinus rhythm. Some ST segment depression in the inferolateral leads Assessment and plan: -Acute on chronic medical station of bilateral pulmonary fibrosis. Cause unknown. Causing hypoxia. IV Solu-Medrol. Consult pulmonary. Discharged on prednisone 40 mg. Follow up with Dr. Napier. -Moderate to severe secondary partly hypertension secondary to chronic pulmonary fibrosis -Acute on chronic hypoxic respiratory failure. Suspect underlying chronic hypoxic respiratory failure especially with exertion. Supplement oxygen for now Discharged home on 2 L of oxygen -Acute COPD exacerbation with predominant chronic bronchitis history of clears mucus. DuoNeb. Nebulized Pulmicort. Discharged home on albuterol when necessary, Symbicort 80/4.5 one puff twice a day -GERD PPI -Hypothyroid Levothyroxin 50 g Disposition: Home Plan - Discharge Summary Discharge Rx Participant: Yes New Discharge Prescriptions: New predniSONE [Deltasone] 40 mg PO DAILY #60 tab Budesonide/Formoterol Fumarate [Symbicort 80-4.5 Mcg Inhaler] 1 puff INHALATION BID #1 each Lisinopril-Hctz 10-12.5 mg [Zestoretic 10-12.5] 1 tab PO HS #30 tab Albuterol Sulfate [Albuterol Sulfate Hfa] 1 puff PO Q4-6H #8.5 gm Levothyroxine Sodium [Synthroid] 25 mcg PO SuTuThSa@0630 tab Continue Omeprazole 40 mg PO DAILY Levothyroxine Sodium [Synthroid] 50 mcg PO DAILY Discharge Medication List Levothyroxine Sodium [Synthroid] 50 mcg PO DAILY 12/09/18 [History] Omeprazole 40 mg PO DAILY 12/09/18 [History] Albuterol Sulfate [Albuterol Sulfate Hfa] 1 puff PO Q4-6H #8.5 gm 12/17/22 [Rx] Budesonide/Formoterol Fumarate [Symbicort 80-4.5 Mcg Inhaler] 1 puff INHALATION BID #1 each 12/17/22 [Rx] Levothyroxine Sodium [Synthroid] 25 mcg PO SuTuThSa@0630 tab 12/17/22 [Rx] Lisinopril-Hctz 10-12.5 mg [Zestoretic 10-12.5] 1 tab PO HS #30 tab 12/17/22 [Rx] predniSONE [Deltasone] 40 mg PO DAILY #60 tab 12/17/22 [Rx] Follow up Appointment(s)/Referral(s): Stewart Napier DO [Doctor of Osteopathic Medicine] - 12/22/22 9:30 am Jaspal Rosas DO [Primary Care Provider] - 1-2 days Patient Instructions/Handouts: Dyspnea (DC)
== END 2022-12-17 13:33 ==
LOC: EC 02:07 → 6NMEDSUR 09:05
PROVIDERS: ADMIT Hospitalist; ATTEND Hospitalist
DX: J84.10 Pulmonary fibrosis, unspecified (principal); J96.21 Acute and chronic respiratory failure with hypoxia; J44.1 Chronic obstructive pulmonary disease with (acute) exacerbation; I15.9 Secondary hypertension, unspecified; K21.9 Gastro-esophageal reflux disease without esophagitis; E03.9 Hypothyroidism, unspecified; R00.0 Tachycardia, unspecified; Z20.822 Contact with and (suspected) exposure to COVID-19; Z79.890 Hormone replacement therapy; Z88.2 Allergy status to sulfonamides; Z91.041 Radiographic dye allergy status; Z87.891 Personal history of nicotine dependence; Z90.710 Acquired absence of both cervix and uterus; Z98.890 Other specified postprocedural states
CPT/HCPCS: 96376 ×2; 96372 ×2; 96374; 99285; 36415; 94640 ×4; 94760; 93005; 93306; 85379; 83880; 80053; 80048; 83690; 83735; 84484; 85025 ×2; 85610; 85730; 81001; 87636; 71046; 71250; G0378 ×2; J2920 ×2; J1650 ×2; 96375